=== PATIENT | female | born 1980 | race Caucasian/White ===

== ENCOUNTER → 2022-09-11 09:14 | Outpatient (BNV) | payer OTHER, SELFPAY | PROVIDERS: Visit Provider Psychiatry & Neurology Psychiatry | DX: F10.10 Alcohol abuse, uncomplicated (principal); F50.02 Anorexia nervosa, binge eating/purging type | CPT/HCPCS: 90832; 99212; 99213 ==

== ENCOUNTER 2022-09-13 14:15 | Outpatient (RCR) | payer OTHER, SELFPAY ==
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
[2022-09-12 11:30] VITALS: BP 90/72; PULSE 65; RESP 14; TEMP 36.9; BMI 17.5
--- NOTE | 2022-09-12 13:47 | PC.ADMIT ---
Patient admitted 09/12/22 to [facility]. Patient is 42 years old and was discharged in July 2022 from inpatient rehab in [place], [place]. Patient self referred due to worsening depression, anxiety, bulimia, low energy, worthlessness. Patient reports SI without intent or plan. Patient denies history of suicide attempts. Patient reports she has been sober since July 2022. All medications reconciled with patient and pharmacy. Admission assessment completed and charted. Copy of safety plan given to patient. Notification of admission form faxed to patient's PCP.
--- NOTE | 2022-09-13 14:47 | HO.PHP ---
Claudette met with the PHP clinician, in which she informed the clinician that she would like to discharge from the program because she does not feel it is a good fit. [facility] staff explored if she has an OP therapist and provider. Claudette mentioned that she does not. [facility] clinician asked Claudette if she would like assistance in placing referrals and offered to support. Claudette disclosed that she does not need a referral and mentioned she is going to call her old therapist back that she had a good relationship with. PHP clinician was receptive. [facility] staff assessed if she was set on medication and has a prescriber. Claudette mentioned she is all set and her PCP prescribers her medication. PHP clinician was receptive. PHP clinician lastly assessed safety. Claudette reported no safety concerns. [facility] staff suggested if she feels she needs the program again to please contact Angelica. Claudette was receptive.
== END 2022-09-13 23:59 | disposition home or self-care (01) ==
LOC: HO.PHPA 14:15
PROVIDERS: Visit Provider Psychiatry & Neurology Psychiatry
DX: F50.02 Anorexia nervosa, binge eating/purging type (principal); F10.10 Alcohol abuse, uncomplicated; Z79.899 Other long term (current) drug therapy
CPT/HCPCS: 90791; 90853